=== PATIENT | male | born 1985 | race Caucasian/White ===

== ENCOUNTER 2016-11-02 16:12 | Emergency (ER) | payer OTHER ==
[2016-11-02 16:17] VITALS: BP 118/75; PULSE 57; TEMP 98; BMI 29.7
--- NOTE | 2016-11-02 17:14 | PDOC ---
History of Present Illness - General Chief Complaint: Rash Stated Complaint: RASH Time Seen by Provider: 11/02/16 16:25 History Source: Patient - History of Present Illness Timing/Duration: reports: other Location: reports: hands Past History - Past Medical History Allergies/Adverse Reactions: Allergies Allergy/AdvReac Type Severity Reaction Status Date / Time No Known Allergies Allergy Verified 11/02/16 16:15 Home Medications: Ambulatory Orders Clobetasol Prop 0.05% Tp Oint [Temovate (Nf)] 60 gm NR BID #1 tube 11/02/16 Loratadine [Claritin] 10 mg PO DAILY #14 tablet 11/02/16 Other medical history: NONE - Psycho/Social/Smoking Cessation Hx Anxiety: No Suicidal Ideation: No Smoking History: Current some day smoker Have you smoked in the past 12 months: Yes Number of Cigarettes Smoked Daily: 1 Information on smoking cessation initiated: No Hx Alcohol Use: No Drug/Substance Use Hx: No Substance Use Type: Alcohol Review of Systems - Review of Systems Constitutional: No: Chills, Fever Integumentary: Yes: Pruritus, Rash *Physical Exam - Vital Signs Last Vital Signs Temp Pulse Resp BP Pulse Ox 98.0 F 57 L 18 118/75 100 11/02/16 16:15 11/02/16 16:15 11/02/16 16:15 11/02/16 16:15 11/02/16 16:15 - Physical Exam General Appearance: Yes: Appropriately Dressed. No: Apparent Distress HEENT: positive: Normal Voice Neck: positive: Supple Respiratory/Chest: negative: Respiratory Distress Integumentary: positive: Dry, Warm, Other (small group of vesicles on dorsum of R hand w/ several papules in a linear pattern extending proximally to ulnar aspect of wrist/forearm) Neurologic: positive: Fully Oriented, Alert, Normal Mood/Affect Medical Decision Making - Medical Decision Making 11/02/16 17:40 31 yo M, no sig hx, here w/ pruritic rash to RUE x 3 days that he noticed at work, similar to last time he had an allergic rxn 2/2 poison jaye. 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 See exam Possible localized poison jaye allergy, less likely shingles as not confined to specific dermatome and rash similar to prior poison jaye allergy -dc w/ clobetasol and antihistamine -work precautions discussed -reasons to return d/w pt 11/02/16 17:45 *DC/Admit/Observation/Transfer Diagnosis at time of Disposition: Poison jaye dermatitis - Discharge Dispostion Disposition: HOME Condition at time of disposition: Good - Prescriptions Prescriptions: Loratadine [Claritin] 10 mg PO DAILY #14 tablet Clobetasol Prop 0.05% Tp Oint [Temovate (Nf)] 60 gm NR BID #1 tube - Patient Instructions Printed Discharge Instructions: DI for Poison Jaye Allergy Additional Instructions: Take medications as directed and return for persistent and/or worsening of symptoms Print Language: GREEK
== END 2016-11-02 17:13 | disposition home or self-care (01) ==
LOC: JERFT 16:12
DX: L23.7 Allergic contact dermatitis due to plants, except food (principal)
CPT/HCPCS: 99281-25

== ENCOUNTER 2018-11-18 07:51 | Emergency (ER) | payer SELFPAY, OTHER | END 2018-11-18 09:16 | disposition home or self-care (01) | LOC: JER 07:51 ==